=== PATIENT | male | born 1980 | race Caucasian/White ===

== ENCOUNTER 2021-09-02 10:59 | Emergency (ER) | payer OTHER, SELFPAY ==
[2021-09-02 11:15] VITALS: BP 140/83; PULSE 87; RESP 18; TEMP 36.7; O2SAT 99
--- NOTE | 2021-09-02 11:42 | ED.WOUNDLAC ---
HPI - Wound/Laceration General Chief Complaint: Wound/Laceration Stated Complaint: Laceration to Head Time Seen by Provider: 09/02/21 11:48 Source: patient and RN notes reviewed Mode of arrival: ambulatory Limitations: no limitations History of Present Illness HPI narrative: 41-year-old male presents with concern for laceration to the scalp. 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 He reports he is not up-to-date on his tetanus vaccination. He denies loss of consciousness, vomiting, headache. Location: scalp Related Data Home Medications Medication Instructions Recorded Confirmed lisinopril 20 mg PO DAILY 09/02/21 09/02/21 omeprazole 20 mg PO DAILY 09/02/21 09/02/21 Allergies Allergy/AdvReac Type Severity Reaction Status Date / Time No Known Allergies Allergy Verified 09/02/21 11:37 Review of Systems Review of Systems: CONSTITUTIONAL: Denies malaise, chills, sweats, or fever. SKIN: Reports laceration to his scalp MUSCULOSKELETAL: Denies muscle skeletal pain NEUROLOGIC: Denies numbness, weakness All systems reviewed & are unremarkable except as noted in HPI and below PMFSH Social History Social History (Updated 06/28/21 @ 16:35 by Evangelina Ortega) Social History: Smoking status: Never smoker Second hand tobacco smoke exposure: No Alcohol intake: never Substance use: never Substance use type: does not use Gender identity (if verbalized by the patient): Male Sexual Orientation (if Verbalized by the Patient): Straight or Heterosexual Comments At time of signature, agree with nursing past medical, surgical, social and family history. There is no relevant family history pertinent to the presenting complaint Exam Narrative: GENERAL: Well-appearing, well-nourished, and in no acute distress. HEAD: Normocephalic, scalp laceration noted EYES: PERRLA, sclera clear, and EOMI. ENT: Nares clear. Mucous membranes moist. NECK: Supple. CHEST: No respiratory distress. Speaks in full sentences. HEART: Regular rate and rhythm. SKIN: Warm, dry. 1.5 cm laceration into the subcutaneous tissue noted to the top of NEURO: Alert and oriented x3. PSYCH: Normal mood and affect Course Course Emergency Course: Patient is aware of diagnosis, understands and agrees to treatment plan. Anticipatory guidance given. Patient agrees to follow-up as directed and is aware of reasons to seek care at the emergency department. Portions of this record may have been created with voice recognition software Level of Care: Express Care Visit Vital Signs Vital signs: Vital Signs Temperature 98.1 F 09/02/21 11:15 Pulse Rate 87 09/02/21 11:15 Respiratory Rate 18 09/02/21 11:15 Blood Pressure 140/83 09/02/21 11:15 Pulse Oximetry 99 09/02/21 11:15 Temperature 98.1 F 09/02/21 11:15 Pulse Rate 87 09/02/21 11:15 Respiratory Rate 18 09/02/21 11:15 Blood Pressure 140/83 09/02/21 11:15 Pulse Oximetry 99 09/02/21 11:15 Reviewed. Procedures Laceration Laceration 1: Date: 09/02/21 Time: 11:50 Site: scalp Size (cm): 1.5 Description: irregular Depth: simple, single layer Pre-repair: wound explored and irrigated ====== Skin Level ====== Skin layer closed with: erica Number of sutures: 4 ====== Subcutaneous Layer ====== ====== Muscle Layer ====== ====== Tendon Layer ====== MDM - Wound/Laceration MDM Narrative Medical decision making narrative: Wound explored for foreign body and copious irrigation provided with no evidence of FB. The laceration was identified to be 1.5 cm in length and located at the top of the head. The laceration was cleansed with [employer] and no debris was noted. The laceration was then irrigated. The wound was explored and no foreign bodies were found. The wound was closed w
[2021-09-02] MEDS: TETANUS,DIPHTHERIA,AC PERTUSSIS ADULT (0.5 ML) BOOSTRIX IM (11:54)
== END 2021-09-02 12:20 | disposition home or self-care (01) ==
PROVIDERS: Emergency Provider Nurse Practitioner; PCP Family Medicine
DX: S01.01XA Laceration without foreign body of scalp, initial encounter (principal); W27.8XXA Contact with other nonpowered hand tool, initial encounter; Z23 Encounter for immunization
CPT/HCPCS: 12001; 90471; 90715; 99212; G0463

== ENCOUNTER 2022-09-06 08:36 | Day surgery (SDC) | payer OTHER, SELFPAY ==
[2022-07-30 10:04] VITALS: BMI 34.8
--- NOTE | 2022-08-22 10:56 | SUR.PREOP ---
pt states no changes in health hx/medications. new time/date instructions provided
--- NOTE | 2022-09-06 08:23 | WPDANESEPPF ---
Anes - Initial Pre Proc Eval Procedure: Operation Date: 09/06/22 10:30 Proposed Procedures p Diagnostic Colonoscopy - Shreyas Smith MD Date/Time: 09/06/22 08:23 Surgeon: Shreyas Smith MD Pre Op Diagnosis: Iron Deficient Anemia Patient Data Age: 42 Gender: M Height: 1.73 m Weight: 104 kg Allergies Allergy/AdvReac Type Severity Reaction Status Date / Time No Known Allergies Allergy Verified 09/06/22 09:40 Home Medications Medication Instructions Recorded Confirmed Type omeprazole 40 mg capsule,delayed See Rx Instructions .Route 05/06/22 09/06/22 Rx release .COMPLEX #90 caps metformin 500 mg tablet,extended 2,000 mg PO DAILY 90 days #360 tabs 05/08/22 09/06/22 Rx release 24 hr blood sugar diagnostic (Contour See Rx Instructions .Route 05/17/22 09/06/22 Rx Next Test Strips) .COMPLEX #100 strips ferrous sulfate 325 mg (65 mg 650 mg PO .every other day #30 tabs 07/11/22 09/06/22 Rx iron) tablet sodium,potassium,mag sulfates 17.5 See Rx Instructions PO .COMPLEX 08/13/22 09/06/22 Rx gram-3.13 gram-1.6 gram oral soln #354 mL (Suprep Bowel Prep Kit) lisinopril 40 mg tablet 40 mg PO DAILY #90 tabs 08/28/22 09/06/22 Rx semaglutide 0.25 mg or 0.5 mg (2 0.25 mg (0.4 mL) subcut WEEKLY #3 08/29/22 09/06/22 Rx mg/3 mL) subcutaneous pen injector mL (Ozempic) simvastatin 10 mg tablet 10 mg PO DAILY #90 tabs 08/30/22 09/06/22 Rx dapagliflozin 10 mg tablet 10 mg PO QAM #90 tabs 09/03/22 09/06/22 Rx (Farxiga) Patient hx anesthesia problems: none Family hx anesthesia problems: none Results Review: All pre-operative results and documents have been reviewed as part of the pre-operative evaluation. [facility] Past Medical History Medical History (Updated 09/06/22 @ 08:23 by Alexander Maravilla DO) Diabetes mellitus Essential hypertension ROCIO (iron deficiency anemia) Pure hypercholesterolemia Social History Social History Social History: Smoking status: Never smoker Second hand tobacco smoke exposure: No Alcohol intake: current Substance use: never Substance use type: does not use Living arrangements: with family Occupation/Education: occupation Gender identity (if verbalized by the patient): Male Sexual Orientation (if Verbalized by the Patient): Straight or Heterosexual Spiritual care concerns: No Anes - Eval Final PreProcedure Day of Procedure 09/06/22 08:23 Patient weight: obese Heart: regular rate and rhythm Lungs: clear to auscultation Airway: Mallampati scale class II Neurological: alert and oriented Last oral intake: >/= 8 hours ASA classification: III Emergent: no Anesthetic plan: proceed Anesthesia type and monitoring: general GIVS and standard monitoring Results Review: All pre-operative results and documents have been reviewed as part of the pre-operative evaluation. Informed Consent: The patient's anesthetic plan and its attendant risks and benefits were discussed with the patient/family/POA. Questions were solicited and answers provided to the satisfaction of the patient/family/POA.
[2022-09-06 09:20] VITALS: BP 129/82; PULSE 66; RESP 20; TEMP 36.7; O2SAT 98
[2022-09-06] MEDS: LACTATED RINGERS 1,000 ML 150 ML IV CONT ×2 (09:35→12:00)
[2022-09-06 09:39] LABS: Glucose Point of Care 101 mg/dl (65-105)
--- NOTE | 2022-09-06 10:21 | PM.HPGS ---
History of Present Illness History of Present Illness Consent: Risks, benefits, and alternatives have been discussed and questions answered. Patient agrees to proceed with procedure. Chief complaint: Iron Deficient Anemia Narrative: Rohit Willams is a 42 year old male Presents for colonoscopy. Patient reports that he attempted to donate blood over the last year so and has been denied. Patient subsequently had blood work done which confirmed iron deficiency anemia. Patient denies any obvious blood in his stool. He has never had a stool test. His family history is noncontributory. Patient denies any nose bleeds, bruises or other bleeding. He has had no bleeding. Patient presents today for colonoscopy on request from primary care service. Review of Systems Review of Systems: Review of systems noncontributory. [facility] Past Medical History Medical History (Updated 09/06/22 @ 08:23 by Alexander Maravilla DO) Diabetes mellitus Essential hypertension ROCIO (iron deficiency anemia) Pure hypercholesterolemia Social History Social History Social History: Smoking status: Never smoker Second hand tobacco smoke exposure: No Alcohol intake: current Substance use: never Substance use type: does not use Living arrangements: with family Occupation/Education: occupation Gender identity (if verbalized by the patient): Male Sexual Orientation (if Verbalized by the Patient): Straight or Heterosexual Spiritual care concerns: No Meds Home Medications and Allergies Home Medications Medication Instructions Recorded Confirmed Type omeprazole 40 mg capsule,delayed See Rx Instructions .Route 05/06/22 09/06/22 Rx release .COMPLEX #90 caps metformin 500 mg tablet,extended 2,000 mg PO DAILY 90 days #360 tabs 05/08/22 09/06/22 Rx release 24 hr blood sugar diagnostic (Contour See Rx Instructions .Route 05/17/22 09/06/22 Rx Next Test Strips) .COMPLEX #100 strips ferrous sulfate 325 mg (65 mg 650 mg PO .every other day #30 tabs 07/11/22 09/06/22 Rx iron) tablet sodium,potassium,mag sulfates 17.5 See Rx Instructions PO .COMPLEX 08/13/22 09/06/22 Rx gram-3.13 gram-1.6 gram oral soln #354 mL (Suprep Bowel Prep Kit) lisinopril 40 mg tablet 40 mg PO DAILY #90 tabs 08/28/22 09/06/22 Rx semaglutide 0.25 mg or 0.5 mg (2 0.25 mg (0.4 mL) subcut WEEKLY #3 08/29/22 09/06/22 Rx mg/3 mL) subcutaneous pen injector mL (Ozempic) simvastatin 10 mg tablet 10 mg PO DAILY #90 tabs 08/30/22 09/06/22 Rx dapagliflozin 10 mg tablet 10 mg PO QAM #90 tabs 09/03/22 09/06/22 Rx (Farxiga) Allergies Allergy/AdvReac Type Severity Reaction Status Date / Time No Known Allergies Allergy Verified 09/06/22 09:40 Vital Signs Vital Signs - 24 hr 09/06/22 09:20 Temperature 98.0 F Pulse Rate 66 Respiratory Rate 20 Blood Pressure 129/82 Pulse Oximetry 98 Oxygen Delivery Room Air Exam Narrative: Physical exam reveals patient to be alert. Vital signs stable. HEENT exam is unremarkable. Patient is anicteric. Lungs are clear to auscultation and percussion. Heart is without murmur or extra sounds. Abdomen bowel sounds are present soft nontender with no organomegaly. Digital external rectal exam is normal. Assessment and Plan Assessment and plan (1) ROCIO (iron deficiency anemia): Code(s): D50.9 - Iron deficiency anemia, unspecified Status: Acute Assessment and Plan: Patient with anemia and iron deficient indices. Plan for colonoscopy as requested by primary care service. If this is fails to identify source of anemia then EGD in subsequent consideration of small bowel capsule study may be required. Plan to proceed with colonoscopy. Further recommendations may be given subsequently. Patient is on omeprazole for presumed acid reflux likely this should be evaluated by EGD subsequently.
[2022-09-06 11:32] VITALS: BP 118/86; PULSE 76; RESP 16; O2SAT 97
[2022-09-06 11:42] VITALS: BP 120/83; PULSE 69; RESP 16; O2SAT 98
[2022-09-06 11:52] VITALS: BP 127/87; PULSE 65; RESP 18; O2SAT 98
--- NOTE | 2022-09-06 12:57 | WPDANESPN ---
Anes - Prog Note Post-Op Date/Time: 09/06/22 12:57 Cardiovascular status: normal Respiratory status: normal Airway patency: baseline Mental status: baseline Post-Op hydration status: normal Vital Signs: Last Vital Signs Temp 36.7 C 09/06/22 09:20 Pulse 65 09/06/22 11:52 Resp 18 09/06/22 11:52 BP 127/87 09/06/22 11:52 Pulse Ox 98 09/06/22 11:52 O2 Del Method Room Air 09/06/22 11:52 Pain Score (VAS): 0 09/06/22 09:36 POC Capillary Glucose 101 Post-procedural complaints: none Patient Feedback: Patient satisfied with anesthetic care. Other Findings: Patient vital signs back to baseline. Patient denies nausea and vomiting. Patient's pain under control. Patient OK for discharge.
== END 2022-09-06 12:10 | disposition home or self-care (01) ==
PROVIDERS: PCP Family Medicine; Visit Provider Internal Medicine Gastroenterology
PROC: 0DJD8ZZ Inspection of Lower Intestinal Tract, Via Natural or Artificial Opening Endoscopic (ICD-10-PCS; CPT 45378; principal; 2022-09-06 10:30)
DX: D50.9 Iron deficiency anemia, unspecified (principal)
CPT/HCPCS: 45378

== ENCOUNTER 2022-10-18 08:27 | Day surgery (SDC) | payer OTHER, SELFPAY ==
[2022-09-10 08:50] VITALS: BMI 34.2
[2022-09-27 13:23] VITALS: BMI 34.2
--- NOTE | 2022-10-17 12:45 | WPDANESEPPF ---
Anes - Initial Pre Proc Eval Procedure: Operation Date: 10/18/22 10:30 Proposed Procedures p Esophagogastroduodenoscopy - Shreyas Smith MD Date/Time: 10/17/22 12:45 Surgeon: Shreyas Smith MD Pre Op Diagnosis: Iron Deficiency Anemia, Gerd Patient Data Age: 42 Gender: M Height: 1.73 m Weight: 102 kg Allergies Allergy/AdvReac Type Severity Reaction Status Date / Time No Known Allergies Allergy Verified 10/18/22 09:22 Home Medications Medication Instructions Recorded Confirmed Type omeprazole 40 mg capsule,delayed See Rx Instructions .Route 05/06/22 10/18/22 Rx release .COMPLEX #90 caps metformin 500 mg tablet,extended 2,000 mg PO DAILY 90 days #360 tabs 05/08/22 10/18/22 Rx release 24 hr blood sugar diagnostic (Contour See Rx Instructions .Route 05/17/22 09/06/22 Rx Next Test Strips) .COMPLEX #100 strips ferrous sulfate 325 mg (65 mg 650 mg PO .every other day #30 tabs 07/11/22 10/18/22 Rx iron) tablet sodium,potassium,mag sulfates 17.5 See Rx Instructions PO .COMPLEX 08/13/22 09/06/22 Rx gram-3.13 gram-1.6 gram oral soln #354 mL (Suprep Bowel Prep Kit) lisinopril 40 mg tablet 40 mg PO DAILY #90 tabs 08/28/22 10/18/22 Rx semaglutide 0.25 mg or 0.5 mg (2 0.25 mg (0.4 mL) subcut WEEKLY #3 08/29/22 10/18/22 Rx mg/3 mL) subcutaneous pen injector mL (Ozempic) simvastatin 10 mg tablet 10 mg PO DAILY #90 tabs 08/30/22 10/18/22 Rx dapagliflozin propanediol 10 mg 10 mg PO QAM #90 tabs 09/03/22 10/18/22 Rx tablet (Farxiga) Patient hx anesthesia problems: none Family hx anesthesia problems: none Results Review: All pre-operative results and documents have been reviewed as part of the pre-operative evaluation. [facility] Past Medical History Medical History (Updated 09/06/22 @ 08:23 by Alexander Maravilla DO) Diabetes mellitus Essential hypertension ROCIO (iron deficiency anemia) Pure hypercholesterolemia Social History Social History Social History: Smoking status: Never smoker Second hand tobacco smoke exposure: No Alcohol intake: current Drinks per week: 2 Substance use: never Substance use type: does not use Living arrangements: with family Occupation/Education: occupation Gender identity (if verbalized by the patient): Male Sexual Orientation (if Verbalized by the Patient): Straight or Heterosexual Spiritual care concerns: No Anes - Eval Final PreProcedure Day of Procedure 10/17/22 12:45 Patient weight: obese Heart: regular rate and rhythm Lungs: clear to auscultation Airway: Mallampati scale class II Neurological: alert and oriented Last oral intake: >/= 8 hours ASA classification: III Emergent: no Anesthetic plan: proceed Anesthesia type and monitoring: general GIVS and standard monitoring Results Review: All pre-operative results and documents have been reviewed as part of the pre-operative evaluation. Informed Consent: The patient's anesthetic plan and its attendant risks and benefits were discussed with the patient/family/POA. Questions were solicited and answers provided to the satisfaction of the patient/family/POA.
[2022-10-18 09:15] VITALS: BP 123/87; PULSE 63; RESP 18; TEMP 36.5; O2SAT 97
[2022-10-18 09:25] VITALS: BMI 35.0
[2022-10-18] MEDS: LACTATED RINGERS 1,000 ML 150 ML IV CONT (09:43)
--- NOTE | 2022-10-18 09:47 | PM.HPGS ---
History of Present Illness History of Present Illness Consent: Risks, benefits, and alternatives have been discussed and questions answered. Patient agrees to proceed with procedure. Chief complaint: Iron Deficiency Anemia, Gerd Narrative: Rohit Willams is a 42 year old male Presents for EGD. Patient has recent anemia with iron deficient indices of uncertain etiology. Colonoscopy performed revealed internal hemorrhoids. Patient presents today for EGD. Patient does have a history of heartburn and acid reflux. Previously controlled on omeprazole 20mg p.o. daily. He has required 40mg p.o. daily over recent months. States if he misses a dose he does promptly get heartburn. Patient denies any dysphagia. No obvious bleeding reported. No weight loss. Patient presents for EGD to assess for anemia and ongoing GE reflux. Family history is noncontributory. Recent hemoglobin is improved on taking iron supplementation. Review of Systems Review of Systems: Review of systems is noncontributory. Physical exam reveals patient to be alert. Vital signs stable. HEENT exam is unremarkable. Patient is anicteric. Lungs are clear to auscultation and percussion. Heart is without murmur or extra sounds. Abdomen bowel sounds present soft nontender with no organomegaly. Digital external rectal exam is normal. [facility] Past Medical History Medical History (Updated 09/06/22 @ 08:23 by Alexander Maravilla DO) Diabetes mellitus Essential hypertension ROCIO (iron deficiency anemia) Pure hypercholesterolemia Social History Social History Social History: Smoking status: Never smoker Second hand tobacco smoke exposure: No Alcohol intake: current Drinks per week: 2 Substance use: never Substance use type: does not use Living arrangements: with family Occupation/Education: occupation Gender identity (if verbalized by the patient): Male Sexual Orientation (if Verbalized by the Patient): Straight or Heterosexual Spiritual care concerns: No Meds Home Medications and Allergies Home Medications Medication Instructions Recorded Confirmed Type omeprazole 40 mg capsule,delayed See Rx Instructions .Route 05/06/22 10/18/22 Rx release .COMPLEX #90 caps metformin 500 mg tablet,extended 2,000 mg PO DAILY 90 days #360 tabs 05/08/22 10/18/22 Rx release 24 hr blood sugar diagnostic (Contour See Rx Instructions .Route 05/17/22 09/06/22 Rx Next Test Strips) .COMPLEX #100 strips ferrous sulfate 325 mg (65 mg 650 mg PO .every other day #30 tabs 07/11/22 10/18/22 Rx iron) tablet sodium,potassium,mag sulfates 17.5 See Rx Instructions PO .COMPLEX 08/13/22 09/06/22 Rx gram-3.13 gram-1.6 gram oral soln #354 mL (Suprep Bowel Prep Kit) lisinopril 40 mg tablet 40 mg PO DAILY #90 tabs 08/28/22 10/18/22 Rx semaglutide 0.25 mg or 0.5 mg (2 0.25 mg (0.4 mL) subcut WEEKLY #3 08/29/22 10/18/22 Rx mg/3 mL) subcutaneous pen injector mL (Ozempic) simvastatin 10 mg tablet 10 mg PO DAILY #90 tabs 08/30/22 10/18/22 Rx dapagliflozin propanediol 10 mg 10 mg PO QAM #90 tabs 09/03/22 10/18/22 Rx tablet (Farxiga) Allergies Allergy/AdvReac Type Severity Reaction Status Date / Time No Known Allergies Allergy Verified 10/18/22 09:22 Vital Signs Vital Signs - 24 hr 10/18/22 09:15 Temperature 97.7 F Pulse Rate 63 Respiratory Rate 18 Blood Pressure 123/87 Pulse Oximetry 97 Oxygen Delivery Room Air Assessment and Plan Assessment and plan (1) ROCIO (iron deficiency anemia): Code(s): D50.9 - Iron deficiency anemia, unspecified Status: Acute Assessment and Plan: Patient with known iron deficiency. Plan to continue iron supplements for now. Follow-up hemoglobin intermittently. Colonoscopy was unremarkable aside from hemorrhoids. EGD to be performed today. (2) Gastroesophageal reflux disease: Code(s): K21.9 - Gastr
[2022-10-18 10:40] VITALS: BP 109/78; PULSE 72; RESP 16; O2SAT 96
[2022-10-18 10:50] VITALS: BP 109/76; PULSE 69; RESP 16; O2SAT 97
[2022-10-18 11:00] VITALS: BP 116/77; PULSE 70; RESP 14; O2SAT 98
--- NOTE | 2022-10-18 13:37 | WPDANESPN ---
Anes - Prog Note Post-Op Date/Time: 10/18/22 13:37 Cardiovascular status: normal Respiratory status: normal Airway patency: baseline Mental status: baseline Post-Op hydration status: normal Vital Signs: Last Vital Signs Temp 36.5 C 10/18/22 09:15 Pulse 70 10/18/22 11:00 Resp 14 10/18/22 11:00 BP 116/77 10/18/22 11:00 Pulse Ox 98 10/18/22 11:00 O2 Del Method Room Air 10/18/22 11:00 Pain Score (VAS): 0 I/O: Intake & Output 10/17/22 10/18/22 10/18/22 23:59 07:59 15:59 Intake Total 800 Balance 800 Post-procedural complaints: none Patient Feedback: Patient satisfied with anesthetic care. Other Findings: Patient vital signs back to baseline. Patient denies nausea and vomiting. Patient's pain under control. Patient OK for discharge.
== END 2022-10-18 11:11 | disposition home or self-care (01) ==
PROVIDERS: PCP Family Medicine; Visit Provider Internal Medicine Gastroenterology
PROC: 0DJ08ZZ Inspection of Upper Intestinal Tract, Via Natural or Artificial Opening Endoscopic (ICD-10-PCS; CPT 43235; principal; 2022-10-18 10:30)
DX: D50.9 Iron deficiency anemia, unspecified (principal); K21.9 Gastro-esophageal reflux disease without esophagitis
CPT/HCPCS: 43239

== ENCOUNTER 2022-10-18 09:00 | Outpatient (NON) | payer OTHER, SELFPAY | END 2022-10-18 09:01 | disposition home or self-care (01) | LOC: ANHLAB 10-19 07:35 | PROVIDERS: PCP Family Medicine; Visit Provider Internal Medicine Gastroenterology | DX: K21.9 Gastro-esophageal reflux disease without esophagitis (principal) | CPT/HCPCS: 88305 ==